=== PATIENT | female | born 1980 | race African-American/Black ===

== ENCOUNTER 2020-08-17 11:52 | Inpatient (IN) ==
[2020-08-17 15:48] LABS: Basophils % 0.6 % (0.0-0.8); Eosinophils # 0.1 10*3/uL (0.0-0.87); Eosinophils % 2.4 % (0.00-10.9); Hematocrit 35.4 VOL% (35.7-47.0); Hemoglobin 10.6 GM/DL (12.0-16.0); Lymphocytes # 1.4 10*3/uL (1.4-4.0); Lymphocytes % 41.9 % (21.3-54.2); Mean Corpuscular HGB Conc 29.9 GM/DL (32-36); Mean Corpuscular Volume 83.1 FL (87-102); Mean Platelet Volume 10.2 FL (9.6-12.0); Monocytes % 12.7 % (1.7-12.7); Neutrophils % 42.4 % (38.7-73.9); Platelet Count 303 T/CUMM (130-400); Red Blood Count 4.26 MC/CUMM (3.8-5.5); Red Cell Distribution Width 22.8 % (9.3-17.3); White Blood Count 3.4 T/CUMM (4-12)
[2020-08-17 16:14] LABS: Alanine Aminotransferase 27 U/L (13-56); Albumin 3.5 G/DL (3.4-5.0); Alkaline Phosphatase 78 U/L (45-117); Aspartate Amino Transferase 21 U/L (0-37); Bilirubin,Total < 0.39 MG/DL (0.2-1.0); Blood Urea Nitrogen 10 MG/DL (7-18); Calcium 8.1 MG/DL (8.5-10.1); Carbon Dioxide 20 MMOL/L (21-32); Estimated Glom Filtration Rate 101 ML/MIN; Glucose 81 MG/DL (74-106); Osmolality,Calculated 272.7 MOS/KG (273-304); Potassium 3.6 MMOL/L (3.5-5.1); Sodium 138 MMOL/L (136-145); Total Protein 7.1 G/DL (6.4-8.2)
[2020-08-17 16:21] LABS: Eosinophils 6 % (0-10); Hypochromasia 1+; Lymphocytes 39 % (20-55); Microcytosis 1+; Ovalocytes Slight; Platelet Estimate Adequate; Segmented Neutrophils 36 % (50-85); Total Cells Counted 100
[2020-08-17] MEDS ORDERED: MAGNESIUM HYDROXIDE SUSP 30 ML UDCUP PO PRN (19:20)
[2020-08-17] MEDS ORDERED: BISACODYL 10 MG SUPP RECTAL PRN (19:20)
[2020-08-17] MEDS ORDERED: ACETAMINOPHEN 325 MG TABLET PO PRN (19:20)
[2020-08-17] MEDS ORDERED: ONDANSETRON 4 MG/2 ML VIAL IV PRN (19:20)
[2020-08-17] MEDS: FERROUS SULFATE 325 MG TABLET PO SCH (21:11)
[2020-08-17] MEDS: METHOCARBAMOL 500 MG TABLET PO SCH (21:11)
[2020-08-17] MEDS: PREGABALIN 75 MG CAPSULE PO SCH (21:11)
[2020-08-17] MEDS: DOCUSATE SODIUM 100 MG CAPSULE PO SCH (21:11)
[2020-08-18] MEDS: FERROUS SULFATE 325 MG TABLET PO SCH ×2 (09:45→21:10)
[2020-08-18] MEDS: FOLIC ACID 1 MG TABLET PO SCH (09:45)
[2020-08-18] MEDS: DOCUSATE SODIUM 100 MG CAPSULE PO SCH ×2 (09:45→21:10)
[2020-08-18] MEDS: HYDROXYCHLOROQUINE 200 MG TABLET PO SCH (09:46)
[2020-08-18] MEDS: METHOCARBAMOL 500 MG TABLET PO SCH ×3 (09:47→21:10)
[2020-08-18] MEDS: predniSONE 10 MG TABLET PO SCH (09:47)
[2020-08-18] MEDS: LOSARTAN 50 MG TABLET PO SCH (13:03)
[2020-08-18] MEDS: hydroCHLOROthiazide 25 MG TABLET PO SCH (13:03)
[2020-08-18] MEDS ORDERED: LOSARTAN 50 MG TABLET PO ONE (19:00)
[2020-08-18] MEDS: PREGABALIN 75 MG CAPSULE PO SCH (21:10)
[2020-08-19] MEDS: DOCUSATE SODIUM 100 MG CAPSULE PO SCH ×2 (11:27→20:46)
[2020-08-19] MEDS: FOLIC ACID 1 MG TABLET PO SCH (11:28)
[2020-08-19] MEDS: hydroCHLOROthiazide 25 MG TABLET PO SCH (11:28)
[2020-08-19] MEDS: LOSARTAN 50 MG TABLET PO SCH (11:28)
[2020-08-19] MEDS: FERROUS SULFATE 325 MG TABLET PO SCH ×2 (11:28→20:46)
[2020-08-19] MEDS: predniSONE 10 MG TABLET PO SCH (11:29)
[2020-08-19] MEDS: METHOCARBAMOL 500 MG TABLET PO SCH ×2 (11:29→17:32)
[2020-08-19] MEDS: HYDROXYCHLOROQUINE 200 MG TABLET PO SCH (11:29)
[2020-08-19] MEDS ORDERED: propofoL 200 MG/20 ML VIAL IV ONE (13:24)
[2020-08-19] MEDS ORDERED: LIDOCAINE 2% 5 ML VIAL ONE (13:24)
[2020-08-19] MEDS ORDERED: ROCURONIUM 50 MG/5 ML VIAL IV ONE (13:24)
[2020-08-19] MEDS ORDERED: ONDANSETRON 4 MG/2 ML VIAL ONE (13:24)
[2020-08-19] MEDS ORDERED: MIDAZOLAM 2 MG/2 ML VIAL ONE (13:25)
[2020-08-19] MEDS ORDERED: SUCCINYLCHOLINE 200 MG/10 ML VIAL ONE (13:25)
[2020-08-19] MEDS ORDERED: fentaNYL 250 MCG/5 ML VIAL ONE (13:25)
[2020-08-19] MEDS: LACTATED RINGERS 1,000 ML IV SCH ×2 (13:55→20:45)
[2020-08-19] MEDS ORDERED: LIDOCAINE 1% 5 ML VIAL ONE (14:07)
[2020-08-19] MEDS ORDERED: DEXAMETHASONE 4 MG/1 ML VIAL ONE (14:07)
[2020-08-19] MEDS ORDERED: ROPIVACAINE 0.5% 30 ML VIAL ONE (14:07)
[2020-08-19] MEDS ORDERED: ceFAZolin 1,000 MG VIAL ONE (14:50)
[2020-08-19] MEDS ORDERED: SEVOFLURANE 1 UNIT/15 MINUTE INH ONE ×6 (14:50→15:48)
[2020-08-19] MEDS ORDERED: HYDROCORTISONE 100 MG VIAL ONE (15:10)
[2020-08-19] MEDS ORDERED: PHENYLEPHRINE 1 MG/10 ML SYRINGE IV ONE ×2 (15:11→15:37)
[2020-08-19] MEDS ORDERED: ACETAMINOPHEN 1,000 MG/100 ML VIAL IV ONE (15:33)
[2020-08-19] MEDS ORDERED: GLYCOPYRROLATE 0.4 MG/2 ML VIAL ONE (15:46)
[2020-08-19] MEDS ORDERED: NEOSTIGMINE 10 MG/10 ML VIAL ONE ×2 (15:46→15:50)
[2020-08-19] MEDS ORDERED: LACTATED RINGERS 1,000 ML IV ONE (15:51)
[2020-08-19 16:51] LABS: Bilirubin,Urine Negative (Negative); Blood, Urine Negative (Negative); Glucose,Urine (UA) Negative (Negative); Ketones,Urine Negative (Negative); Mucus,Urine Few /LPF (Occasional); Nitrite,Urine Negative (Negative); Protein,Urine Negative; RBC,Urine 1 /HPF (0-4); Squamous Epithelial Cell,Urine Occasional /HPF (0-10); Urine Appearance CLEAR (Clear); Urine Color Yellow (Yellow); Urine Specific Gravity 1.023 (1.001-1.035); Urine Urobilinogen < 2.0 EU/DL (0.2-1.0); WBC,Urine 1 /HPF (0-6)
[2020-08-19] MEDS ORDERED: HYDROmorphone 2 MG/1 ML VIAL IV PRN (17:02)
[2020-08-19] MEDS ORDERED: diphenhydrAMINE 50 MG/1 ML VIAL IV PRN (20:03)
[2020-08-19] MEDS: KETOROLAC 30 MG/1 ML VIAL IV PRN (20:12)
[2020-08-19] MEDS: traMADol 50 MG TABLET PO PRN (22:28)
[2020-08-20] MEDS: METHOCARBAMOL 500 MG TABLET PO SCH ×4 (00:59→21:11)
[2020-08-20] MEDS: PREGABALIN 75 MG CAPSULE PO SCH ×2 (01:00→21:11)
[2020-08-20 05:25] LABS: Hemoglobin 9.8 GM/DL (12.0-16.0); Immature Granulocytes % 0.5 %; Immature Granulocytes Absolute 0.04 #; Lymphocytes # 0.7 10*3/uL (1.4-4.0); Lymphocytes % 9.7 % (21.3-54.2); Mean Corpuscular HGB Conc 30.6 GM/DL (32-36); Mean Corpuscular Volume 81.8 FL (87-102); Mean Platelet Volume 10.5 FL (9.6-12.0); Monocytes % 5.3 % (1.7-12.7); Neutrophils % 84.5 % (38.7-73.9); Platelet Count 270 T/CUMM (130-400); Red Blood Count 3.91 MC/CUMM (3.8-5.5); Red Cell Distribution Width 22.5 % (9.3-17.3); White Blood Count 7.3 T/CUMM (4-12)
[2020-08-20 05:45] LABS: Hypochromasia 1+; Microcytosis 1+; Ovalocytes Few
[2020-08-20 05:46] LABS: Platelet Estimate Normal
[2020-08-20] MEDS: ceFAZolin 1,000 MG in SYRINGE 1 EACH IV SCH ×2 (06:30)
[2020-08-20] MEDS: LACTATED RINGERS 1,000 ML IV SCH (06:39)
[2020-08-20] MEDS: traMADol 50 MG TABLET PO PRN ×2 (07:04→15:41)
[2020-08-20] MEDS: DOCUSATE SODIUM 100 MG CAPSULE PO SCH ×2 (09:36→21:11)
[2020-08-20] MEDS: FOLIC ACID 1 MG TABLET PO SCH (09:36)
[2020-08-20] MEDS: HYDROXYCHLOROQUINE 200 MG TABLET PO SCH (09:36)
[2020-08-20] MEDS: predniSONE 10 MG TABLET PO SCH (09:36)
[2020-08-20] MEDS: FERROUS SULFATE 325 MG TABLET PO SCH ×2 (09:36→21:11)
[2020-08-20] MEDS: LOSARTAN 50 MG TABLET PO SCH ×2 (13:05→15:42)
[2020-08-20] MEDS: hydroCHLOROthiazide 25 MG TABLET PO SCH (13:06)
[2020-08-20] MEDS: POLYETHYLENE GLYCOL POWDER 17 GM PACK PO SCH (15:37)
[2020-08-20] MEDS: IBUPROFEN 800 MG TABLET PO PRN (15:41)
[2020-08-21] MEDS: traMADol 50 MG TABLET PO PRN (05:22)
[2020-08-21] MEDS: IBUPROFEN 800 MG TABLET PO PRN (05:23)
[2020-08-21] MEDS ORDERED: METOCLOPRAMIDE 10 MG/10 ML UDCUP PO SCH (08:00)
[2020-08-21] MEDS: LOSARTAN 50 MG TABLET PO SCH (08:57)
[2020-08-21] MEDS: POLYETHYLENE GLYCOL POWDER 17 GM PACK PO SCH (08:57)
[2020-08-21] MEDS: DOCUSATE SODIUM 100 MG CAPSULE PO SCH ×2 (08:57→21:37)
[2020-08-21] MEDS: HYDROXYCHLOROQUINE 200 MG TABLET PO SCH (08:57)
[2020-08-21] MEDS: predniSONE 10 MG TABLET PO SCH (08:57)
[2020-08-21] MEDS: FERROUS SULFATE 325 MG TABLET PO SCH ×2 (08:57→21:37)
[2020-08-21] MEDS: FOLIC ACID 1 MG TABLET PO SCH (08:57)
[2020-08-21] MEDS: METHOCARBAMOL 500 MG TABLET PO SCH ×3 (08:58→21:38)
[2020-08-21] MEDS: hydroCHLOROthiazide 25 MG TABLET PO SCH (15:44)
[2020-08-21] MEDS: KETOROLAC 30 MG/1 ML VIAL IV PRN (17:34)
[2020-08-21] MEDS: PREGABALIN 75 MG CAPSULE PO SCH (21:37)
[2020-08-22] MEDS: traMADol 50 MG TABLET PO PRN (03:38)
[2020-08-22] MEDS: IBUPROFEN 800 MG TABLET PO PRN (03:39)
[2020-08-22 07:29] VITALS: BP 111/65
[2020-08-22] MEDS: FOLIC ACID 1 MG TABLET PO SCH (08:22)
[2020-08-22] MEDS: HYDROXYCHLOROQUINE 200 MG TABLET PO SCH (08:22)
[2020-08-22] MEDS: LOSARTAN 50 MG TABLET PO SCH (08:22)
[2020-08-22] MEDS: DOCUSATE SODIUM 100 MG CAPSULE PO SCH (08:22)
[2020-08-22] MEDS: FERROUS SULFATE 325 MG TABLET PO SCH (08:26)
[2020-08-22] MEDS: POLYETHYLENE GLYCOL POWDER 17 GM PACK PO SCH (08:26)
[2020-08-22] MEDS: predniSONE 10 MG TABLET PO SCH (08:26)
[2020-08-22] MEDS: METHOCARBAMOL 500 MG TABLET PO SCH (08:26)
[2020-08-22] MEDS: hydroCHLOROthiazide 25 MG TABLET PO SCH (10:25)
== END 2020-08-22 10:20 | disposition home or self-care (01) | DRG 743 ==
LOC: N.OR 11:52 → N.OB 12:08 → EDSTATUS 08-18 13:30
PROVIDERS: ADMIT Obstetrics & Gynecology; ATTEND Obstetrics & Gynecology